=== PATIENT | female | born 1970 | race Caucasian/White ===

== ENCOUNTER 2019-09-04 15:54 | Observation (INO) | payer BC ==
[~2019-09-04] VITALS: Ht 160 cm; Wt 77.6 kg
[2019-09-04] MEDS ORDERED: LOTREL 5-10 MG1 EAC1 ORAL (16:10)
[2019-09-04 16:14] VITALS: BP 175/93
--- NOTE | 2019-09-04 16:14 | NUR ---
ED Nurse Note: Pt from home walked in due to abd pain with lower back pain and N/V since last night. Pt has uterine fibroid embolization yesterday in [place] with Dr Fritz. Pt stated she has surgical incision on her right femoral. Denies redness or swelling. AAO x4, ambulatory with non labored breathing.
[2019-09-04] MEDS ORDERED: Morphine Sulfate 4mg/ml Inj (IV USE ONLY) IVP ONE (16:15)
[2019-09-04] MEDS ORDERED: DiphenhydrAMINE 50mg/ml Inj IVP ONE ×3 (16:15→17:30)
[2019-09-04] MEDS ORDERED: Metoclopramide 10mg/2ml Inj IVP ONE (16:15)
--- NOTE | 2019-09-04 16:26 | Emergency Room Report ---
History of Present Illness General Chief Complaint: Abdominal Pain Source: Patient Present Illness HPI Patient had embolectomy yesterday. Has had continued pain and vomiting through night. Pain is 9/10 lower abdomen and radiating to back. Taking Percocet through the night, but felt feverish. She has been barely able to keep down oral liquids. The pain is pressure and aching. She has had minimal vaginal bleeding and not passing any clots. She denies any dysuria. In July she had similar procedure without the pain, vomiting and feverish feeling. No chills, sore throat, chest pain, palpitations, shortness of breath, rashes, depression, anxiety, visual changes, dizziness, headache. Allergies: Coded Allergies: IODINE (Verified Allergy, Unknown, 09/04/19) Uncoded Allergies: PENICILLIN (Allergy, Unknown, 09/04/19) SULFA (Allergy, Unknown, 09/04/19) COVID-19 Screening Contact w/high risk pt: No Recent Travel to affected area: No Experienced COVID-19 symptoms?: No COVID-19 Testing performed FIRE SERVICES PLUMBER: No Patient History Past Medical History: see triage record Past Surgical History: other - embolectomy Social History: Denies: smoking, alcohol use, drug use Social History Narrative rangel Salazar Reviewed Nursing Documentation: PMH: Agreed; PSxH: Agreed Nursing Documentation-PMH Past Medical History: No History, Except For Hx Hypertension: Yes Review of Systems All Other Systems: negative except mentioned in HPI Physical Exam Vital Signs Date Time Temp Pulse Resp B/P (MAP) Pulse Ox O2 Delivery O2 Flow Rate FiO2 09/04/19 16:04 98.4 69 20 175/93 (120) 100 Room Air Sp02 EP Interpretation: reviewed, normal General Appearance: well appearing, no apparent distress, GCS 15 Head: normocephalic Eyes: bilateral eye normal inspection, bilateral eye PERRL, bilateral eye EOMI ENT: moist mucus membranes Neck: supple Respiratory: lungs clear, normal breath sounds Cardiovascular #1: regular rate, rhythm Cardiovascular #2: 2+ radial (R) Gastrointestinal: normal inspection, normal bowel sounds, no mass, non- distended, no rebound, guarding - Minimal, tenderness - Suprapubic Genitourinary: no CVA tenderness Musculoskeletal: back normal, normal range of motion, gait/station normal Neurologic: alert, oriented x3, grossly normal Psychiatric: mood/affect normal Skin: no rash, warm/dry Medical Decision Making Diagnostic Impression: Primary Impression: Abdominal pain Qualified Codes: R10.30 - Lower abdominal pain, unspecified Additional Impressions: Status post embolectomy Leukocytosis Qualified Codes: D72.828 - Other elevated white blood cell count Hypertension Qualified Codes: I10 - Essential (primary) hypertension ER Course Patient with pain, vomiting and fever post embolectomy yesterday. Differential includes pain post embolectomy, infection, reactive nausea and vomiting, perforation amongst others. Evaluation with labs and CTA of the abdomen and pelvis. Treatment with IV hydration, Reglan, Benadryl and analgesia. Attempt to talk to radiologist re-iodine all. Dr. Kent states tolerated IV contrast after Decadron and Benadryl. Leukocytosis noted. Flagyl has been ordered. Patient pain and nausea improved with treatment in the emergency department.. No reaction to IVP dye with pre-treatment. Patient evaluated by research computing specialist. Patient evaluated by Dr. Kent. Patient hypertensive. She had not taken her blood pressure medications today. They were ordered. Laboratory Tests Test 09/04/19 16:45 09/04/19 16:50 Urine Color Pale yellow Urine Appearance Slightly cloudy Urine pH 7 (4.5-8.0) Urine Specific [place] 1.010 (1.005-1.035) Urine Protein 1+ (NEGATIVE) H Urine Glucose (UA) Negative (NEGATIVE) Urine Ketones 4+ (NEGATIVE) H Urine Blood 3+ (NEGATIVE) H Urine Nitrite Negative (NEGATIVE) Urine Bilirubin Negative (NEGATIVE) Urine Urobilinogen Normal MG/DL (0.0-1.0) Urine Leukocyte Esterase Negative (NEGATIVE) Urine RBC 2-4 /HPF (0 - 2) H Urine WBC 0-2 /HPF (0 - 2) Urine Squamous Epithelial Cells Moderate /LPF (NONE/OCC) H Urine Bacteria Few /HPF (NONE) Urine HCG, Qualitative Negative (NEGATIVE) White Blood Count 19.2 K/UL (4.8-10.8) H Red Blood Count 4.78 M/UL (4.20-5.40) Hemoglobin 12.4 G/DL (12.0-16.0) Hematocrit 38.5 % (37.0-47.0) Mean Corpuscular Volume 81 FL (80-99) Mean Corpuscular Hemoglobin 26.0 PG (27.0-31.0) L Mean Corpuscular Hemoglobin Concent 32.3 G/DL (32.0-36.0) Red Cell Distribution Width 18.7 % (11.6-14.8) H Platelet Count 326 K/UL (150-450) Mean Platelet Volume 7.8 FL (6.5-10.1) Neutrophils (%) (Auto) % (45.0-75.0) Lymphocytes (%) (Auto) % (20.0-45.0) Monocytes (%) (Auto) % (1.0-10.0) Eosinophils (%) (Auto) % (0.0-3.0) Basophils (%) (Auto) % (0.0-2.0) Differential Total Cells Counted 100 Neutrophils % (Manual) 86 % (45-75) H Lymphocytes % (Manual) 8 % (20-45) L Monocytes % (Manual) 6 % (1-10) Eosinophils % (Manual) 0 % (0-3) Basophils % (Manual) 0 % (0-2) Band Neutrophils 0 % (0-8) Platelet Estimate Adequate Platelet Morphology Normal Anisocytosis 1+ Prothrombin Time 11.2 SEC (9.30-11.50) Prothrombin Time INR 1.0 (0.9-1.1) Activated Partial Thromboplast Time 27 SEC (23-33) Sodium Level 134 MMOL/L (136-145) L Potassium Level 3.8 MMOL/L (3.5-5.1) Chloride Level 96 MMOL/L (98-107) L Carbon Dioxide Level 29 MMOL/L (21-32) Anion Gap 9 mmol/L (5-15) Blood Urea Nitrogen 12 mg/dL (7-18) Creatinine 0.8 MG/DL (0.55-1.30) Estimated Glomerular Filtration Rate > 60 mL/min (>60) Glucose Level 150 MG/DL (74-106) H Calcium Level 8.8 MG/DL (8.5-10.1) Total Bilirubin 0.6 MG/DL (0.2-1.0) Aspartate Amino Transferase (AST) 24 U/L (15-37) Alanine Aminotransferase (ALT) 23 U/L (12-78) Alkaline Phosphatase 85 U/L (46-116) Total Protein 7.8 G/DL (6.4-8.2) Albumin 4.1 G/DL (3.4-5.0) Globulin 3.7 g/dL Albumin/Globulin Ratio 1.1 (1.0-2.7) Lipase 90 U/L (73-393) CT/MRI/US Diagnostic Results CT/MRI/US Diagnostic Results : Imaging Test Ordered: CTA abdomen and pelvis Impression 1. Unremarkable arterial structures. 2. Right inferior renal pole atypical appearing parenchyma could represent tiny multiple renal infarcts, pyelonephritis, or potentially atypical neoplasm. 3. Recommend outpatient MRI kidney to further characterize 4. Right intrauterine crescentic hyperdensity as above of uncertain significance, recommend pelvic ultrasound. 5. Cholelithiasis without findings to suggest acute cholecystitis, recommend outpatient upper quadrant ultrasound to further evaluate as gallbladder is contracted and soft tissue component cannot be definitely excluded. 6. Single nonobstructing left nephrolith. Last Vital Signs Date Time Temp Pulse Resp B/P (MAP) Pulse Ox O2 Delivery O2 Flow Rate FiO2 09/04/19 22:41 Room Air 09/04/19 21:39 98.6 56 16 157/75 (102) 96 Status: improved Disposition: ADMITTED INPATIENT Condition: Serious Referrals: Osmany Kent MD (PCP) Timmy Crowley MD Sep 04, 2019 16:26
--- NOTE | 2019-09-04 16:50 | NUR ---
ED Nurse Note: Collected blood/urine then sent.
[2019-09-04 16:53] LABS: APPEARANCE,URINE SLIGHTLY CLOUDY; BILIRUBIN, URINE NEGATIVE (NEGATIVE); COLOR,URINE PALE YELLOW; GLUCOSE, URINE (UA) NEGATIVE (NEGATIVE); KETONES,URINE 4+ (NEGATIVE); LEUKOCYTE ESTERASE ,URINE NEGATIVE (NEGATIVE); NITRITE,URINE NEGATIVE (NEGATIVE); PH,URINE 7 (4.5-8.0); PROTEIN,URINE 1+ (NEGATIVE); UROBILINOGEN,URINE NORMAL MG/DL (0.0-1.0)
[2019-09-04 17:13] LABS: ANION GAP 9 mmol/L (5-15); BLOOD UREA NITROGEN 12 mg/dL (7-18); CALCIUM 8.8 MG/DL (8.5-10.1); CARBON DIOXIDE 29 MMOL/L (21-32); CHLORIDE 96 MMOL/L (98-107); CREATININE 0.8 MG/DL (0.55-1.30); POTASSIUM 3.8 MMOL/L (3.5-5.1); SODIUM 134 MMOL/L (136-145)
[2019-09-04 17:15] LABS: HEMATOCRIT 38.5 % (37.0-47.0); HEMOGLOBIN 12.4 G/DL (12.0-16.0); MEAN CORPUSCULAR VOLUME 81 FL (80-99); PLATELET COUNT 326 K/UL (150-450); RED BLOOD COUNT 4.78 M/UL (4.20-5.40); RED CELL DISTRIBUTION WIDTH 18.7 % (11.6-14.8); WHITE BLOOD COUNT 19.2 K/UL (4.8-10.8)
[2019-09-04] MEDS ORDERED: Omnipaque 350 100ml vial INJ PRN (17:15)
[2019-09-04] MEDS ORDERED: Solu-MEDROL 125mg Inj IVP ONE (17:15)
[2019-09-04 17:20] LABS: ALANINE AMINOTRANSFERASE 23 U/L (12-78); ALBUMIN 4.1 G/DL (3.4-5.0); ALBUMIN/GLOBULIN RATIO 1.1 (1.0-2.7); ALKALINE PHOSPHATASE 85 U/L (46-116); ASPARTATE AMINO TRANSFERASE 24 U/L (15-37); BILIRUBIN,TOTAL 0.6 MG/DL (0.2-1.0)
--- NOTE | 2019-09-04 17:54 | History & Physical ---
History of Present Illness General Reason for Hospitalization: Abdominal Pain Present Illness HPI 49 y/o female w/ recent uterine artery embolization with Dr. Kent 09/03/19 with post-op pain and fever throughout the night presented to ED with severe abdominal pain and nausea vomiting. Noted with leukocytosis. She has had previous embolization and symptoms were not of this severity. She has continued pain despite taking percocet tablets as well. She is s/p CT Angio abdomen in the emergency room, results are pending. Blood pressure noted to be elevated in emergency room. Allergies: Coded Allergies: IODINE (Verified Allergy, Unknown, 09/04/19) Uncoded Allergies: PENICILLIN (Allergy, Unknown, 09/04/19) SULFA (Allergy, Unknown, 09/04/19) COVID-19 Screening Contact w/high risk pt: No Recent Travel to affected area: No Experienced COVID-19 symptoms?: No Medication History Scheduled Amlodipine Besylate/Benazepril 5-10 Mg* (Lotrel 5-10 Mg Capsule*), 1 CAP ORAL DAILY, (Reported) Patient History Healthcare decision maker Resuscitation status Advanced Directive on File Review of Systems Review of Symptoms General ROS: no weight loss +fever Psychological ROS: no depression or mood changes, no memory loss Ophthalmic ROS: no visual changes or eye irritation ENT ROS: no nasal congestion, hearing loss, dizziness Allergy and Immunology ROS: no allergic symptoms or urticaria Hematological and Lymphatic ROS: no swollen glands, unusual bleeding or bruising Endocrine ROS: no polyuria, polydipsia, weight changes, temperature intolerance Respiratory ROS: no cough, shortness of breath, or wheezing Cardiovascular ROS: no chest pain or dyspnea on exertion Gastrointestinal ROS: + abdominal pain, +nausea/vomiting Musculoskeletal ROS: no myalgias or arthralgias Neurological ROS: no TIA or stroke symptoms Dermatological ROS: no new or changing skin lesions, rashes or pruritis Physical Exam Physical Exam General appearance: alert, cooperative, + distress, appears stated age Head: Normocephalic, without obvious abnormality, atraumatic Eyes: conjunctivae/corneas clear. PERRL, EOM's intact. Fundi benign Throat: Lips, mucosa, and tongue normal. Teeth and gums normal Neck: supple, symmetrical, trachea midline, no adenopathy, thyroid: not enlarged, symmetric, no tenderness/mass/nodules, no carotid bruit and no JVD Lungs: clear to auscultation bilaterally Heart: regular rate and rhythm, S1, S2 normal, no murmur, click, rub or gallop Abdomen: Tender, firm, no rebound/guarding Extremities: extremities normal, atraumatic, no cyanosis or edema Pulses: 2+ and symmetric Skin: Skin color, texture, turgor normal. No rashes or lesions Neurologic: Grossly normal Last 24 Hour Vital Signs Date Time Temp Pulse Resp B/P (MAP) Pulse Ox O2 Delivery O2 Flow Rate FiO2 09/04/19 16:14 98.4 67 17 175/93 98 Room Air 09/04/19 16:14 69 20 Room Air 09/04/19 16:04 98.4 69 20 175/93 (120) 100 Room Air Laboratory Tests Test 09/04/19 16:45 09/04/19 16:50 Urine Color Pale yellow Urine Appearance Slightly cloudy Urine pH 7 (4.5-8.0) Urine Specific [place] 1.010 (1.005-1.035) Urine Protein 1+ (NEGATIVE) H Urine Glucose (UA) Negative (NEGATIVE) Urine Ketones 4+ (NEGATIVE) H Urine Blood 3+ (NEGATIVE) H Urine Nitrite Negative (NEGATIVE) Urine Bilirubin Negative (NEGATIVE) Urine Urobilinogen Normal MG/DL (0.0-1.0) Urine Leukocyte Esterase Negative (NEGATIVE) Urine RBC 2-4 /HPF (0 - 2) H Urine WBC 0-2 /HPF (0 - 2) Urine Squamous Epithelial Cells Moderate /LPF (NONE/OCC) H Urine Bacteria Few /HPF (NONE) Urine HCG, Qualitative Negative (NEGATIVE) White Blood Count 19.2 K/UL (4.8-10.8) H Red Blood Count 4.78 M/UL (4.20-5.40) Hemoglobin 12.4 G/DL (12.0-16.0) Hematocrit 38.5 % (37.0-47.0) Mean Corpuscular Volume 81 FL (80-99) Mean Corpuscular Hemoglobin 26.0 PG (27.0-31.0) L Mean Corpuscular Hemoglobin Concent 32.3 G/DL (32.0-36.0) Red Cell Distribution Width 18.7 % (11.6-14.8) H Platelet Count 326 K/UL (150-450) Mean Platelet Volume 7.8 FL (6.5-10.1) Neutrophils (%) (Auto) % (45.0-75.0) Lymphocytes (%) (Auto) % (20.0-45.0) Monocytes (%) (Auto) % (1.0-10.0) Eosinophils (%) (Auto) % (0.0-3.0) Basophils (%) (Auto) % (0.0-2.0) Neutrophils % (Manual) Pending Lymphocytes % (Manual) Pending Platelet Estimate Pending Platelet Morphology Pending Prothrombin Time 11.2 SEC (9.30-11.50) Prothromb Time International Ratio 1.0 (0.9-1.1) Activated Partial Thromboplast Time 27 SEC (23-33) Sodium Level 134 MMOL/L (136-145) L Potassium Level 3.8 MMOL/L (3.5-5.1) Chloride Level 96 MMOL/L (98-107) L Carbon Dioxide Level 29 MMOL/L (21-32) Anion Gap 9 mmol/L (5-15) Blood Urea Nitrogen 12 mg/dL (7-18) Creatinine 0.8 MG/DL (0.55-1.30) Estimat Glomerular Filtration Rate > 60 mL/min (>60) Glucose Level 150 MG/DL (74-106) H Calcium Level 8.8 MG/DL (8.5-10.1) Total Bilirubin 0.6 MG/DL (0.2-1.0) Aspartate Amino Transf (AST/SGOT) 24 U/L (15-37) Alanine Aminotransferase (ALT/SGPT) 23 U/L (12-78) Alkaline Phosphatase 85 U/L (46-116) Total Protein 7.8 G/DL (6.4-8.2) Albumin 4.1 G/DL (3.4-5.0) Globulin 3.7 g/dL Albumin/Globulin Ratio 1.1 (1.0-2.7) Lipase 90 U/L (73-393) Height (Feet): 5 Height (Inches): 3.00 Weight (Pounds): 169 Medications Current Medications Medications (Trade) Dose Ordered Sig/Regan Route PRN Reason Start Time Stop Time Status Last Admin Dose Admin Iohexol (Omnipaque 350 100ml) 100 ml NOW PRN INJ Radiology Procedure 09/04/19 17:15 09/06/19 17:04 Sodium Chloride 1,000 ml @ 200 mls/hr Q5H IV 09/04/19 16:15 10/04/19 16:14 Assessment/Plan Assessment/Plan: Problem List: * Intractable abdominal pain * nausea/vomiting * fever * leukocytosis, likely post-op, steroids also given in ED * Fibroids s/p uterine artery embolization 09/03/19 * HTN Plan: * f/u CT angio abdomen results * pain control * Reglan * Abx: flagyl 500 mg tid for now, suspect leukocytosis primarily due to embolization and may rise after steroids given prior to IV contrast in ER * f/u cultures * Monitor blood pressure * clear liquids * Bowel regimen Case d/w Dr. Kent [facility] Hospital declaration INPATIENT level of care is warranted for this patient because patient is a 89 year old with who presents with suspicion of . I have a high level of concern because . Patient is at high risk for . Plan of care/treatment include . Patient care is expected to be greater than 2 midnights. OBSERVATION level of care is warranted for this patient. Patient is a 89 year old with who presents with . Patient will be admitted for 1 midnight, but if additional night(s) is/are necessary, patient will be converted to inpatient status for the entire hospitalization Disposition: Once the patient is stable to leave the hospital, I anticipate the patient will likely be discharged to the following environment: Estimated discharge date: I spent 70 minutes on this patient's case, and minutes was dedicated to counseling and/or care coordination. MIPS (Merit-based Incentive Payment System) Applicable CPT: 99587, 24159 CHECK ALL THAT ARE MET: Measure #5 (CHF): All ages. Prescribe ADALBERTO/ARB upon discharge for patients with left ventricular systolic dysfunction. If not, the reason is clearly documented in the medical chart. Measure #8 (CHF): All ages. Prescribe a beta citlalli upon discharge for patients with left ventricular systolic dysfunction. If not, the reason is clearly documented in the medical chart. Measure #47 Advance care plan or surrogate decision maker documented in the medical record. Measure #130 The provider has documented, updated, or reviewed the patients current medication list and has documented it in the patients note. Measure #374 (All): Send report to referring provider. Measure #407(Sepsis due to MSSA bacteremia): Age 18+ Patient treated with a beta-lactam antibiotic (Nafcillin, Oxacillin or Cefazolin) as definitive therapy. MEDICAL COMPLEXITY High complexity medical decision making (need 2/3 categories) Problem - need 4 points Acute/new problem with new plan for workup (4 points, 1 max) Acute/new problem without additional workup (3 points, 1 max) Unstable chronic problem actively being managed (2 point each, 2 max) Stable chronic problem actively being managed (1 point each, 2 max) Self-limited/transient process (constipation, muscle ache, etc) (1 point each , 2 max) Data - need 4 points Reviewed labs/imaging studies (1 points, 2 max) Independent review of imaging (EKG, xrays, etc) (2 points, 2 max) Discussed case with consult/other MD/RN (2 points, 2 max) High Risk - qualify if have one of the following: Severe exacerbation of acute problem, acute mental status change, IV narcotics , monitoring drug levels (vancomycin, INR, tacrolimus etc) Tony Abel MD Sep 04, 2019 17:54
[2019-09-04] MEDS ORDERED: HYDROmorphone 1mg/ml Carpuject IVP PRN (18:00)
[2019-09-04 18:10] VITALS: BP 161/86
--- NOTE | 2019-09-04 18:18 | Diagnostic Imaging Report ---
EXAM: CT Angiography Abdomen and Pelvis With Intravenous Contrast CLINICAL HISTORY: ABD PAIN TECHNIQUE: Axial computed tomographic angiography images of the abdomen and pelvis with intravenous contrast. CTDI is 73 mGy and DLP is 401 mGy-cm. One or more of the following dose reduction techniques were used: automated exposure control, adjustment of the mA and/or kV according to patient size, use of iterative reconstruction technique. MIP reconstructed images were created and reviewed. Coronal and sagittal reformatted images were created and reviewed. COMPARISON: No relevant prior studies available. FINDINGS: VASCULATURE: Aorta: No acute findings. No abdominal aortic aneurysm. No dissection. Celiac trunk and mesenteric arteries: No acute findings. No occlusion or significant stenosis. Renal arteries: No acute findings. No occlusion or significant stenosis. Iliac arteries: No acute findings. No occlusion or significant stenosis. Lung bases: Unremarkable. No mass. No consolidation. ABDOMEN: Liver: Scattered tiny benign hepatic hypodensities, largest measuring 1.6 cm in the right hepatic lobe; this represents benign cysts or tiny hemangiomas. No further follow-up required. Otherwise unremarkable liver. Gallbladder and bile ducts: Cholelithiasis without findings to suggest acute cholecystitis. Recommend outpatient upper quadrant ultrasound to further evaluate gallbladder appearance, as the gallbladder is very contracted on this study and some component of soft tissue thickening cannot be excluded. No ductal dilation. Pancreas: Unremarkable. No ductal dilation. No mass. Spleen: Unremarkable. No splenomegaly. Adrenals: Unremarkable. No mass. Kidneys and ureters: Recommend outpatient MRI kidney to further characterize. Ill-defined heterogeneous appearance of the posterior inferior right renal parenchyma which could represent multiple tiny renal infarcts but which are not definitively characterized on this study. Pyelonephritis or potentially atypical appearance of neoplasm could also have this presentation. Single nonobstructing left nephrolith. Otherwise unremarkable kidneys. Stomach and bowel: Unremarkable. No obstruction. No mucosal thickening. PELVIS: Appendix: No findings to suggest acute appendicitis. Bladder: Unremarkable. No mass. Reproductive: Recommend pelvic ultrasound to further characterize ill- defined crescentic layering appearing right intrauterine hyperdensity of uncertain significance, axial series 5, image 233. ABDOMEN and PELVIS: Intraperitoneal space: Unremarkable. No significant fluid collection. No free air. Bones/joints: No acute fracture. No dislocation. Soft tissues: Unremarkable. Lymph nodes: Unremarkable. No enlarged lymph nodes. IMPRESSION: 1. Unremarkable arterial structures. 2. Right inferior renal pole atypical appearing parenchyma could represent tiny multiple renal infarcts, pyelonephritis, or potentially atypical neoplasm. 3. Recommend outpatient MRI kidney to further characterize 4. Right intrauterine crescentic hyperdensity as above of uncertain significance, recommend pelvic ultrasound. 5. Cholelithiasis without findings to suggest acute cholecystitis, recommend outpatient upper quadrant ultrasound to further evaluate as gallbladder is contracted and soft tissue component cannot be definitely excluded. 6. Single nonobstructing left nephrolith.
--- NOTE | 2019-09-04 18:53 | NUR ---
ED Nurse Note: Report given to Cathy SHABAZZ of Med Surg unit.
--- NOTE | 2019-09-04 19:00 | NUR ---
NURSE NOTES: Received report from ER. Endorsed to marine resource economist nurse. pt coming to unit at 1930
--- NOTE | 2019-09-04 19:15 | NUR ---
HAND-OFF: Report given to Chiqui SHABAZZ.
[2019-09-04] MEDS ORDERED: Benazepril 10mg tab ONE (19:28)
[2019-09-04 19:40] VITALS: BP 167/73
--- NOTE | 2019-09-04 19:40 | NUR ---
TRANSFER TO FLOOR: Patient transferred to as ordered, per Dr Rodriguez. Report given to MELE Morgan. Belongings and medications given to . Family and or S/O informed of transfer.
[2019-09-04] MEDS ORDERED: Benazepril 10mg tab ORAL ONE (19:45)
[2019-09-04 20:00] VITALS: BP 186/81
--- NOTE | 2019-09-04 20:00 | NUR ---
NURSE NOTES: Patient came from ER via gurney. A&OX4. IV site patent and intact. Skin intact. Belonging were checked. Bed in lowest position. Call light within reach. Will continue to monitor.
--- NOTE | 2019-09-04 20:29 | NUR ---
NURSE NOTES: Notified Dr. Crum regarding patient's high BP. Obtained continue home medication, Zofran 4mg q4hrs iv prn order. No prn BP medication order at this time.
[2019-09-04] MEDS: Benazepril 10mg tab ORAL SCH ×2 (21:00→21:27)
[2019-09-04] MEDS: Potassium Chloride 40 MEQ in Dextrose 5%/Lactated Ringer's 1,000 ML IV SCH (21:27)
[2019-09-04 21:39] VITALS: BP 157/75
[2019-09-05] VITALS: BP 159/76
[2019-09-05] MEDS: Potassium Chloride 40 MEQ in Dextrose 5%/Lactated Ringer's 1,000 ML IV SCH ×2 (03:40→08:39)
[2019-09-05 04:00] VITALS: BP 158/77
[2019-09-05 05:56] LABS: ALANINE AMINOTRANSFERASE 19 U/L (12-78); ALBUMIN 3.3 G/DL (3.4-5.0); ALKALINE PHOSPHATASE 72 U/L (46-116); ANION GAP 9 mmol/L (5-15); ASPARTATE AMINO TRANSFERASE 16 U/L (15-37); BILIRUBIN,TOTAL 0.4 MG/DL (0.2-1.0); BLOOD UREA NITROGEN 8 mg/dL (7-18); CALCIUM 8.1 MG/DL (8.5-10.1); CARBON DIOXIDE 28 MMOL/L (21-32); CHLORIDE 102 MMOL/L (98-107); CREATININE 0.9 MG/DL (0.55-1.30); POTASSIUM 4.4 MMOL/L (3.5-5.1); SODIUM 139 MMOL/L (136-145)
[2019-09-05 06:35] LABS: HEMATOCRIT 36.6 % (37.0-47.0); HEMOGLOBIN 11.5 G/DL (12.0-16.0); MEAN CORPUSCULAR VOLUME 82 FL (80-99); PLATELET COUNT 290 K/UL (150-450); RED BLOOD COUNT 4.45 M/UL (4.20-5.40); WHITE BLOOD COUNT 12.8 K/UL (4.8-10.8)
--- NOTE | 2019-09-05 07:26 | NUR ---
HAND-OFF: Report given to Enrrique Kaufman RN. VS stable. Call light within reach. Will continue to monitor.
--- NOTE | 2019-09-05 07:39 | NUR ---
NURSE NOTES: PT AXOX4, CALM, RESTING IN BED. DENIES PAIN AT THIS TIME. PT REQUESTS FOR REGULAR FOOD INSTEAD OF CLEAR LIQUIDS. PER PT, NO EPISODE OF NAUSEA OR VOMITING OVERNIGHT. HER LAST EPISODE OF VOMITING WAS YESTERDAY MORNING AND STATES SHE IS READY TO EAT REGULAR FOOD. PT DENIES SOB OR DIZZINESS WHEN AMBULATING. IN NO APPARENT DISTRESS AT THIS TIME. PT EDUCATED HOW TO USE CALL LIGHT BEFORE AMBULATING AND NOT TO AMBULATE IF FEELING DIZZY. PT VERBALIZED UNDERSTANDING. BED IN LOWEST POSITION WITH BEDSIDE RAILS X2 RAISED. WILL CONTINUE TO MONITOR.
[2019-09-05 08:00] VITALS: BP 153/72
[2019-09-05] MEDS ORDERED: Iron Sucrose 200 MG in NS 110 ML IV SCH ×2 (08:30→11:00)
[2019-09-05] MEDS ORDERED: Docusate 100mg cap ORAL SCH (09:00)
[2019-09-05] MEDS ORDERED: Benazepril 10mg tab ORAL SCH (09:00)
--- NOTE | 2019-09-05 10:02 | NUR ---
NURSE NOTES: Spoke to regarding patient and new order received. Order read back and carried out.
[2019-09-05] MEDS ORDERED: Dextrose 5%/Lactated Ringer's 1,000 ML IV SCH (11:00)
--- NOTE | 2019-09-05 11:34 | Pulmonology Progress Note ---
Tammy Alvarado IMPORTER OR EXPORTER 09/05/19 1134: Subjective Allergies: Coded Allergies: IODINE (Verified Allergy, Unknown, 09/04/19) Uncoded Allergies: PENICILLIN (Allergy, Unknown, 09/04/19) SULFA (Allergy, Unknown, 09/04/19) Subjective feeling better pain controlled, no fevers tolerates CL diet BP improved WBC trending down Objective Last 24 Hour Vital Signs Date Time Temp Pulse Resp B/P (MAP) Pulse Ox O2 Delivery O2 Flow Rate FiO2 09/05/19 08:40 61 153/72 09/05/19 08:40 153/72 09/05/19 08:00 98.1 61 18 153/72 (99) 98 09/05/19 04:00 99.8 53 18 158/77 (104) 97 09/05/19 00:00 98.8 53 18 159/76 (103) 97 09/04/19 22:41 Room Air 09/04/19 22:08 Room Air 09/04/19 21:39 98.6 56 16 157/75 (102) 96 09/04/19 21:00 157/75 09/04/19 21:00 56 157/75 09/04/19 20:00 98.6 54 16 186/81 (116) 96 09/04/19 19:40 98.6 72 16 167/73 98 Room Air 09/04/19 19:40 98.6 72 16 167/73 98 Room Air 09/04/19 19:34 177/77 09/04/19 19:30 75 177/77 09/04/19 18:10 98.7 75 16 161/86 99 Room Air 09/04/19 17:25 98.5 09/04/19 16:14 98.4 67 17 175/93 98 Room Air 09/04/19 16:14 69 20 Room Air 09/04/19 16:04 98.4 69 20 175/93 (120) 100 Room Air Intake and Output 09/04/19 09/05/19 18:59 06:59 Intake Total 1620 ml Balance 1620 ml Intake Oral 120 ml IV Total 1500 ml # Voids 1 3 Objective General appearance: alert, cooperative, not in distress, appears stated age Head: Normocephalic, without obvious abnormality, atraumatic Eyes: conjunctivae/corneas clear. PERRL, EOM's intact. Fundi benign Throat: Lips, mucosa, and tongue normal. Teeth and gums normal Neck: supple, symmetrical, trachea midline, no adenopathy, thyroid: not enlarged, symmetric, no tenderness/mass/nodules, no carotid bruit and no JVD Lungs: clear to auscultation bilaterally Heart: regular rate and rhythm, S1, S2 normal, no murmur, click, rub or gallop Abdomen: soft, obese, non tender, no rebound/guarding Extremities: extremities normal, atraumatic, no cyanosis or edema Pulses: 2+ and symmetric Skin: Skin color, texture, turgor normal. No rashes or lesions Neurologic: Grossly normal Laboratory Tests 09/04/19 16:45: Urine Color Pale yellow, Urine Appearance Slightly cloudy, Urine pH 7, Urine Specific [place] 1.010, Urine Protein 1+H, Urine Glucose (UA) Negative, Urine Ketones 4+H, Urine Blood 3+H, Urine Nitrite Negative, Urine Bilirubin Negative, Urine Urobilinogen Normal, Urine Leukocyte Esterase Negative, Urine RBC 2-4H, Urine WBC 0-2, Urine Squamous Epithelial Cells ModerateH, Urine Bacteria Few, Urine HCG, Qualitative Negative 09/04/19 16:50: White Blood Count 19.2H, Red Blood Count 4.78, Hemoglobin 12.4, Hematocrit 38.5 , Mean Corpuscular Volume 81, Mean Corpuscular Hemoglobin 26.0L, Mean Corpuscular Hemoglobin Concent 32.3, Red Cell Distribution Width 18.7H, Platelet Count 326, Mean Platelet Volume 7.8, Neutrophils (%) (Auto) , Lymphocytes (%) (Auto) , Monocytes (%) (Auto) , Eosinophils (%) (Auto) , Basophils (%) (Auto) , Differential Total Cells Counted 100, Neutrophils % ( Manual) 86H, Lymphocytes % (Manual) 8L, Monocytes % (Manual) 6, Eosinophils % ( Manual) 0, Basophils % (Manual) 0, Band Neutrophils 0, Platelet Estimate Adequate, Platelet Morphology Normal, Anisocytosis 1+, Prothrombin Time 11.2, Prothromb Time International Ratio 1.0, Activated Partial Thromboplast Time 27, Sodium Level 134L, Potassium Level 3.8, Chloride Level 96L, Carbon Dioxide Level 29, Anion Gap 9, Blood Urea Nitrogen 12, Creatinine 0.8, Estimat Glomerular Filtration Rate > 60, Glucose Level 150H, Calcium Level 8.8, Total Bilirubin 0.6, Aspartate Amino Transf (AST/SGOT) 24, Alanine Aminotransferase ( ALT/SGPT) 23, Alkaline Phosphatase 85, Total Protein 7.8, Albumin 4.1, Globulin 3.7, Albumin/Globulin Ratio 1.1, Lipase 90 09/05/19 04:45: White Blood Count 12.8H, Red Blood Count 4.45, Hemoglobin 11.5L, Hematocrit 36.6L, Mean Corpuscular Volume 82, Mean Corpuscular Hemoglobin 25.8L, Mean Corpuscular Hemoglobin Concent 31.3L, Red Cell Distribution Width 18.0H, Platelet Count 290, Mean Platelet Volume 7.7, Neutrophils (%) (Auto) , Lymphocytes (%) (Auto) , Monocytes (%) (Auto) , Eosinophils (%) (Auto) , Basophils (%) (Auto) , Differential Total Cells Counted 100, Neutrophils % ( Manual) 88H, Lymphocytes % (Manual) 9L, Monocytes % (Manual) 3, Eosinophils % ( Manual) 0, Basophils % (Manual) 0, Band Neutrophils 0, Platelet Estimate Adequate, Platelet Morphology Normal, Anisocytosis 1+, Sodium Level 139, Potassium Level 4.4, Chloride Level 102, Carbon Dioxide Level 28, Anion Gap 9, Blood Urea Nitrogen 8, Creatinine 0.9, Estimat Glomerular Filtration Rate > 60, Glucose Level 210H, Calcium Level 8.1L, Total Bilirubin 0.4, Aspartate Amino Transf (AST/SGOT) 16, Alanine Aminotransferase (ALT/SGPT) 19, Alkaline Phosphatase 72, Total Protein 6.7, Albumin 3.3L, Globulin 3.4, Albumin/Globulin Ratio 1.0, Hypochromasia 1+ Current Medications Medications (Trade) Dose Ordered Sig/Regan Route PRN Reason Start Time Stop Time Status Last Admin Dose Admin Amlodipine Besylate (Norvasc) 5 mg DAILY ORAL 09/05/19 09:00 10/05/19 08:59 09/05/19 08:40 Benazepril HCl (Lotensin) 10 mg DAILY ORAL 09/05/19 09:00 10/05/19 08:59 09/05/19 08:40 Dextrose/Lactated Ringer's 1,000 ml @ 80 mls/hr [id number] IV 09/05/19 11:00 10/05/19 10:59 Docusate Sodium (Colace) 200 mg TWICE A DAY ORAL 09/05/19 09:00 10/05/19 08:59 09/05/19 08:41 Hydromorphone HCl (Dilaudid) 1 mg Q3H PRN IVP mild pain 09/04/19 18:00 09/11/19 17:59 Hydromorphone HCl (Dilaudid) 2 mg Q2H PRN IVP Severe Pain (Pain Scale 7-10) 09/04/19 18:00 09/11/19 17:59 Hydromorphone HCl (Dilaudid) 2 mg Q3H PRN IVP Moderate Pain (Pain Scale 4-6) 09/04/19 18:00 09/11/19 17:59 Iohexol (Omnipaque 350 100ml) 100 ml NOW PRN INJ Radiology Procedure 09/04/19 17:15 09/06/19 17:04 Iron Sucrose 200 mg/Sodium Chloride 120 ml @ 240 mls/hr ONCE IV 09/05/19 11:00 09/05/19 12:00 Metronidazole 100 ml @ 100 mls/hr Q12HR IVPB 09/04/19 21:00 09/11/19 20:59 09/05/19 08:39 Ondansetron HCl (Zofran) 4 mg Q4H PRN IVP Nausea & Vomiting 09/04/19 20:30 10/04/19 20:29 Assessment/Plan Assessment/Plan ASSESSMENT * Intractable abdominal pain-improved * nausea/vomiting-resolved * fever-resolved * leukocytosis, likely post-op, steroids also given in ED -trending down * Uterine fibroids s/p recent uterine artery embolization 09/03/19 * HTN with HTN urgency - resolved PLAN OF CARE * CT angio abdomen: 1. Unremarkable arterial structures. 2. Right inferior renal pole atypical appearing parenchyma could represent tiny multiple renal infarcts, pyelonephritis, or potentially atypical neoplasm. 3. Recommend outpatient MRI kidney to further characterize 4. Right intrauterine crescentic hyperdensity as above of uncertain significance, recommend pelvic ultrasound. 5. Cholelithiasis without findings to suggest acute cholecystitis, recommend outpatient upper quadrant ultrasound to further evaluate as gallbladder is contracted and soft tissue component cannot be definitely excluded. 6. Single nonobstructing left nephrolith. * pain management addressed a s needed, pain is controlled currently * symptomatic treatment with a/emetic prn/ Reglan * abx: Flagyl 500 mg tid for now, suspect leukocytosis primarily due to embolization and may rise after steroids given prior to IV contrast in ER, already trending down * f/u cultures * monitor BP, on CCB and ADALBERTO, now better * advance diet to [place] as tolerated * bowel regimen * OOB as tolerated Case discussed and evaluated by supervising physician Tony Abel MD 09/05/19 1244: Subjective Allergies: Coded Allergies: IODINE (Verified Allergy, Unknown, 09/04/19) Uncoded Allergies: PENICILLIN (Allergy, Unknown, 09/04/19) SULFA (Allergy, Unknown, 09/04/19) Assessment/Plan Assessment/Plan Patient seen and examined with IMPORTER OR EXPORTER. Agree with above A&P as it reflects our joint deliberations. Advance diet as tolerated Improved leukocytosis noted renal abnormality, will need outpatient MRI, will need to f/u w/ her primary care physician. d/c planning soon Tammy Alvarado NP Sep 05, 2019 11:34 Tony Abel MD Sep 05, 2019 12:44
[2019-09-05 12:00] VITALS: BP 138/72
--- NOTE | 2019-09-05 13:36 | NUR ---
NURSE NOTES: PT ASKED WHETHER SHE WILL BE DISCHARGED TODAY AND REQUESTS TO BE ADVANCED TO REGULAR DIET. PER DR ORTIZ, PT NEEDS TO BE PASSING GAS OR HAVE BM BEFORE ADVANCING DIET AND TO BE DISCHARGED. PT IN NO APPARENT DISTRESS AT THIS TIME. DENIES PAIN OR N/V AND TOLERATING DIET. WILL CONTINUE TO MONITOR.
--- NOTE | 2019-09-05 14:34 | NUR ---
*-* INSURANCE *-* ALL AVAILABLE CLINICALS HAVE BEEN FAXED TO: [employer] AUTH#[id number] P:[phone] F:[phone]
[2019-09-05] MEDS ORDERED: Fleet's Enema 133ml RECTAL SCH (15:15)
--- NOTE | 2019-09-05 15:22 | NUR ---
NURSE NOTES: RN LEFT MESSAGE FOR DR ALAN REGARDING DISCHARGE ORDER.
--- NOTE | 2019-09-05 15:32 | NUR ---
CASE MANAGEMENT: INITIAL REVIEW 49YR OLD FEMALE FROM HOME CC: ABDOMINAL PAIN; N/V , S/P UTERINE FIBROID EMBOLIZATION SI:ABD PAIN . LEUKOCYTOSIS . HYPERTENSION . POST OP PAIN 98.5 69 20 175/93 100% ON RA WBC 19.2 NA+134 BG 150 IS:IVF NS BOLUS X2 IV MORPHINE SULFATE X1 IV BENADRYL X2 IV SOLU-MEDROL X1 CTA ABD/PEL-1. Unremarkable arterial structures. 2. Right inferior renal pole atypical appearing parenchyma could represent tiny multiple renal infarcts, pyelonephritis, or potentially atypical neoplasm. 3. Recommend outpatient MRI kidney to further characterize 4. Right intrauterine crescentic hyperdensity as above of uncertain significance, recommend pelvic ultrasound. 5. Cholelithiasis without findings to suggest acute cholecystitis, recommend outpatient upper quadrant ultrasound to further evaluate as gallbladder is contracted and soft tissue component cannot be definitely excluded. 6. Single nonobstructing left nephrolith. \: 3E MED SURG UNIT DCP: HOME WHEN STABLE PLAN: CONTROL PAIN TOLERATING DIET ANTICIPATE DISCHARGE IN AM Addendum: 09/05/19 at 1546 by YOMI BECERRA LVN INTERQUAL MET UNDER OBSERVATION
--- NOTE | 2019-09-05 15:50 | NUR ---
NURSE NOTES: RN LEFT SECOND MESSAGE FOR DR ALAN.
[2019-09-05 16:00] VITALS: BP 161/80
--- NOTE | 2019-09-05 16:15 | NUR ---
NURSE NOTES: PER LUCIA CELAYA, DR ALAN WITH ORDER FOR PT TO CONTINUE FLAGYL PO FROM LAST ADMISSION. PER PT, SHE WAS NOT PRESCRIBED ANY ANTIBIOTICS. RN LEFT THIRD MESSAGE AT DR ALAN'S OFFICE.
--- NOTE | 2019-09-05 16:43 | NUR ---
NURSE NOTES: PT WAS DISCHARGED IN STABLE CONDITION. RN INSTRUCTED PT ON DISCHARGE PACKET AND COMPLICATIONS OF UTERINE ARTERY EMBOLIZATION. PT INSTRUCTED TO CALL PHARMACY TO ASSISTANT PROFESSOR OF [employer]AMA ANTIBIOTIC THAT DR ALAN WILL CALL IN. PT VERBALIZED UNDERSTANDING. BELONGINGS CHECKED AT BEDSIDE AND ALL ACCOUNTED. PT WAS PICKED UP BY VIA PRIVATE VEHICLE.
--- NOTE | 2019-09-05 16:43 | NUR ---
NURSE NOTES: DR ALAN TO CALL IN PRESCRIPTION FOR ANTIBIOTIC AT [facility]
--- NOTE | 2019-09-05 18:02 | General Surgery Progress Note ---
General Surgery-Progress Note Subjective Day of Surgery: september 02 Procedure Performed ovarian artery embolization Symptoms: improved, tolerating diet, voiding well, BM Objective Last 24 Hour Vital Signs Date Time Temp Pulse Resp B/P (MAP) Pulse Ox O2 Delivery O2 Flow Rate FiO2 09/05/19 16:00 98.2 55 20 161/80 (107) 99 09/05/19 12:00 98.4 62 19 138/72 (94) 98 09/05/19 09:00 Room Air 09/05/19 08:40 61 153/72 09/05/19 08:40 153/72 09/05/19 08:00 98.1 61 18 153/72 (99) 98 09/05/19 04:00 99.8 53 18 158/77 (104) 97 09/05/19 00:00 98.8 53 18 159/76 (103) 97 09/04/19 22:41 Room Air 09/04/19 22:08 Room Air 09/04/19 21:39 98.6 56 16 157/75 (102) 96 09/04/19 21:00 157/75 09/04/19 21:00 56 157/75 09/04/19 20:00 98.6 54 16 186/81 (116) 96 09/04/19 19:40 98.6 72 16 167/73 98 Room Air 09/04/19 19:40 98.6 72 16 167/73 98 Room Air 09/04/19 19:34 177/77 09/04/19 19:30 75 177/77 09/04/19 18:10 98.7 75 16 161/86 99 Room Air I&O Intake and Output 09/04/19 09/05/19 19:00 07:00 Intake Total 1620 ml Balance 1620 ml Intake Oral 120 ml IV Total 1500 ml # Voids 1 3 Dressing: dry Wound: clean Drains: none Cardiovascular: RSR Respiratory: clear Abdomen: soft, flat, non-tender, present bowel sounds, non-distended Extremities: no edema, no tenderness, no cyanosis Laboratory Tests Test 09/05/19 04:45 White Blood Count 12.8 K/UL (4.8-10.8) H Red Blood Count 4.45 M/UL (4.20-5.40) Hemoglobin 11.5 G/DL (12.0-16.0) L Hematocrit 36.6 % (37.0-47.0) L Mean Corpuscular Volume 82 FL (80-99) Mean Corpuscular Hemoglobin 25.8 PG (27.0-31.0) L Mean Corpuscular Hemoglobin Concent 31.3 G/DL (32.0-36.0) L Red Cell Distribution Width 18.0 % (11.6-14.8) H Platelet Count 290 K/UL (150-450) Mean Platelet Volume 7.7 FL (6.5-10.1) Neutrophils (%) (Auto) % (45.0-75.0) Lymphocytes (%) (Auto) % (20.0-45.0) Monocytes (%) (Auto) % (1.0-10.0) Eosinophils (%) (Auto) % (0.0-3.0) Basophils (%) (Auto) % (0.0-2.0) Differential Total Cells Counted 100 Neutrophils % (Manual) 88 % (45-75) H Lymphocytes % (Manual) 9 % (20-45) L Monocytes % (Manual) 3 % (1-10) Eosinophils % (Manual) 0 % (0-3) Basophils % (Manual) 0 % (0-2) Band Neutrophils 0 % (0-8) Platelet Estimate Adequate Platelet Morphology Normal Hypochromasia 1+ Anisocytosis 1+ Sodium Level 139 MMOL/L (136-145) Potassium Level 4.4 MMOL/L (3.5-5.1) Chloride Level 102 MMOL/L (98-107) Carbon Dioxide Level 28 MMOL/L (21-32) Anion Gap 9 mmol/L (5-15) Blood Urea Nitrogen 8 mg/dL (7-18) Creatinine 0.9 MG/DL (0.55-1.30) Estimat Glomerular Filtration Rate > 60 mL/min (>60) Glucose Level 210 MG/DL (74-106) H Calcium Level 8.1 MG/DL (8.5-10.1) L Total Bilirubin 0.4 MG/DL (0.2-1.0) Aspartate Amino Transf (AST/SGOT) 16 U/L (15-37) Alanine Aminotransferase (ALT/SGPT) 19 U/L (12-78) Alkaline Phosphatase 72 U/L (46-116) Total Protein 6.7 G/DL (6.4-8.2) Albumin 3.3 G/DL (3.4-5.0) L Globulin 3.4 g/dL Albumin/Globulin Ratio 1.0 (1.0-2.7) Additional Comments wbc down today, Plan Additional Comments improved, pain controlled, no further nausea. ok to discharge Osmany Kent MD Sep 05, 2019 18:02
--- NOTE | 2019-09-06 11:26 | NUR ---
*-* INSURANCE *-* ALL AVAILABLE CLINICALS HAVE BEEN FAXED TO:(NO DISCHARGE SUM IN SYSTEM UNABLE TO FAX) [employer] AUTH#[id number] P:[phone] F:[phone]
--- NOTE | 2019-09-08 11:40 | Discharge Summary ---
Discharge Summary Discharge Summary _ DATE OF ADMISSION: 09/04/2019 DATE OF DISCHARGE: 09/05/2019 DISCHARGED BY: Dr. Abel REASON FOR ADMISSION: 49 years old female with past medical history of hypertension, uterine fibroids , who recently undergone uterine artery embolization on 09/03/2019, presented to emergency department with postoperative pain and fevers throughout the night. She reported severe abdominal pain associated with nausea and vomiting. Vital signs initially revealed elevated blood pressure 175/93 , patient was afebrile. Laboratory work-up revealed leukocytosis with WBC 19.2, stable hemoglobin and hematocrit. Patient reported that she had previous uterine embolization but symptoms were not as severe as this time. CT angiogram of abdomen and pelvis in the emergency room revealed: 1. Unremarkable arterial structures. 2. Right inferior renal pole atypical appearing parenchyma could represent tiny multiple renal infarcts, pyelonephritis, or potentially atypical neoplasm. 3. Recommend outpatient MRI kidney to further characterize 4. Right intrauterine crescentic hyperdensity as above of uncertain significance, recommend pelvic ultrasound. 5. Cholelithiasis without findings to suggest acute cholecystitis, recommend outpatient upper quadrant ultrasound to further evaluate as gallbladder is contracted and soft tissue component cannot be definitely excluded. 6. Single nonobstructing left nephrolith. In emergency department patient received analgesic, IV fluid , antiemetic and admitted for further management. Patient also received one dose of steroid. CONSULTANTS: surgery Dr. Kent [facility] COURSE: Patient admitted to medical surgical floor. Patient was provided with IV fluids and empiric antibiotics. Blood pressure was managed with ADALBERTO inhibitor and calcium channel citlalli . Blood pressure improved. Pain management was addressed. Ambulation out of bed was encouraged. Diet was slowly advanced as tolerated, antiemetic were on board as needed. Patient was able to tolerate diet. Bowel regimen instituted. Potassium was replaced. Patient received 1 dose of the IV iron. Leukocytosis trended down to 12.8. No fevers. Patient clinically stabilized and was ready for discharge home with outpatient follow-up with a surgeon as advised. Due to rapid and unexpected improvement in patient condition , patient was discharged in 1 day. FINAL DIAGNOSES: Uterine fibroids , status post uterine artery embolization 630 Hypertension Intractable abdominal pain-resolved Nausea and vomiting-resolved Fevers Leukocytosis -improved DISCHARGE MEDICATIONS: See Medication Reconciliation list. DISCHARGE INSTRUCTIONS: Patient was discharged home. Follow-up with surgeon as advised Tammy Alvarado NP Sep 08, 2019 11:40
--- NOTE | 2019-09-09 13:36 | NUR ---
*-* INSURANCE *-* DISCHARGE SUMMARY HAS BEEN FAXED [facility] AUTH#[id number] P:[phone] F:[phone]
== END 2019-09-05 16:35 | disposition home or self-care (01) ==
LOC: EMR 16:20 → INTOOBSV 16:50 → 3E 16:50 → EDBEDREQ 18:09
DX: G89.18 Other acute postprocedural pain (principal); I10 Essential (primary) hypertension; Z87.42 Personal history of other diseases of the female genital tract; Z88.0 Allergy status to penicillin; Z88.2 Allergy status to sulfonamides; K80.20 Calculus of gallbladder without cholecystitis without obstruction; D25.9 Leiomyoma of uterus, unspecified; R50.9 Fever, unspecified
CPT/HCPCS: 36415; 74175; 80053; 81003; 81025; 83690; 85007; 85025; 85610; 85730; 86850; 86900; 86901; 96361; 96374; 96375; 96376; 99285; G0378; J1200; J1756; J2270; J2765; J2930; J3480; J7030; Q9967